=== PATIENT | male | born 1970 | race Caucasian/White ===

== ENCOUNTER 2023-03-04 06:15 | Emergency (ER) | payer BC, SELFPAY ==
[2023-03-04] VITALS (25 sets, daily range): BP systolic 123–135; BP diastolic 86–93; PULSE 65–84; RESP 9–23; TEMP 36.6; O2SAT 94–96; BMI 39.3
--- NOTE | 2023-03-04 06:37 | ED_ITS ---
HPI - Chest Pain General Chief Complaint: Chest Pain Stated Complaint: CHEST PAIN Time Seen by Provider: 03/04/23 06:22 Source: patient and family Mode of arrival: walk-in Limitations: no limitations History of Present Illness HPI narrative: This 52-year-old male presents for evaluation of discomfort in the middle of his chest. The patient states he woke up this morning with the sensation. He does not call it pain but states it is something out of the ordinary for him. He points to the midsternal area. There is no radiation into his arm or back or jaw. It is never had a cardiac workup before. He denies a history of reflux. He denies that this feels like heartburn. He denies any shortness of breath dizziness or diaphoresis. He has no abdominal pain or back pain. He has no lower extremity pain or swelling. He has never had a cardiac workup in the past. No medications were taken prior to arrival. He denies tobacco use. He denies that he ate a heavy meal prior to going to bed last night or is belching excessively. Related Data Home Medications Medication Instructions Recorded Confirmed allopurinol 300 mg tablet mg 03/04/23 Review of Systems ROS Status of ROS 10 or more systems reviewed and unremark able except as noted in history and below [facility] Social History Smoking status: Never smoker Exam Narrative Exam Narrative: Nurses note and vital signs reviewed and patient is not hypoxic. General: The patient appears well and in no apparent distress. Patient is resting comfortably on cart. Skin: Warm, slightly diaphoretic, no skin rash noted Head: Normocephalic, atraumatic Eye: Normal conjunctiva, no drainage, EOMI. PERRL Ears, Nose, Mouth, and Throat: oral mucosa is moist. Cardiovascular: Regular Rate and Rhythm S1S2, no murmurs rubs or gallops appreciated, pulses are brisk and equal bilaterally, no tenderness to palpation on chest wall Respiratory: Patient is in no distress, no accessory muscle use, lungs are clear to auscultation, no wheezing, rales or rhonchi Back: non-tender, no CVA tenderness bilaterally to percussion. GI: Normal bowel sounds, no tenderness to palpation, no masses appreciated. No rebound, guarding, or rigidity noted. Musculoskeletal: The patient has no evidence of calf tenderness, no pitting edema, symmetrical pulses noted bilaterally Neurological: A&O x4, normal speech Psychiatric: Cooperative Constitutional Vital Signs, click to edit/add: Last Vital Signs Temp 98 F 03/04/23 06:20 Pulse 77 03/04/23 06:20 Resp 16 03/04/23 06:20 BP 135/86 03/04/23 06:20 Pulse Ox 95 03/04/23 06:20 O2 Del Method Room Air 03/04/23 06:20 Course Vital Signs Vital signs: Vital Signs Temperature 98 F 03/04/23 06:20 Pulse Rate 77 03/04/23 06:20 Respiratory Rate 16 03/04/23 06:20 Blood Pressure 135/86 03/04/23 06:20 Pulse Oximetry 95 03/04/23 06:20 Oxygen Delivery Method Room Air 03/04/23 06:20 Temperature 98 F 03/04/23 06:20 Pulse Rate 77 03/04/23 06:20 Respiratory Rate 16 03/04/23 06:20 Blood Pressure 135/86 03/04/23 06:20 Pulse Oximetry 95 03/04/23 06:20 Oxygen Delivery Method Room Air 03/04/23 06:20 MDM - Chest Pain MDM Narrative Medical decision making narrative: This otherwise healthy 52-year-old male who is a nonsmoker presents for evalua tion of discomfort in his chest upon awakening this morning. There is no radiation of the discomfort. He denies any dizziness diaphoresis or syncope. He has no abdominal pain or back pain. No medications were taken prior to arrival. Upoon arrival is a sinus rhythm at 79 beats for minute. His vital signs are stable. He was medicated with 324 mg baby aspirin emergency department and IV Pepcid, IV fluids and sublingual nitroglycerin. He will be signed out to the incoming physician at 7 AM. ECG Data Attestation: I personally reviewed and interpreted this ECG as follows: (Sinus rhythm at 79 beats per minute, normal axis, low voltage, no acute ST segment elevation or T-wave inversion) Discharge Plan Discharge Chief Complaint: Chest Pain Clinical Impression: Chest pain Patient Disposition: Still a Patient Prescriptions / Home Meds: No Action allopurinol 300 mg tablet Referrals: Physician,Non-Staff, MD [Primary Care Provider] - 1 week
[2023-03-04 06:49] LABS: Basophils Absolute Auto 0.1 10^3/uL (0.0-0.1); Basophils Percent Auto 0.8 % (0.2-2.0); Eosinophils Absolute Auto 0.4 10^3/uL (0.0-0.7); Eosinophils Percent Auto 6.2 % (0.9-7.0); Hematocrit 45.5 % (42.0-54.0); Hemoglobin 15.4 g/dL (14.0-18.0); Immature Granulocytes Abs Auto 0.02 10^3/uL (0.00-0.03); Immature Granulocytes Pct Auto 0.3 % (0.0-0.5); Lymphocytes Absolute Auto 2.2 10^3/uL (1.2-3.8); Lymphocytes Percent Auto 36.4 % (20.5-60.0); Mean Corpuscular HGB Conc 33.8 g/dL (29.9-35.2); Mean Corpuscular Hemoglobin 30.5 pg (25.9-34.0); Mean Corpuscular Volume 90.1 fL (80.0-94.0); Mean Platelet Volume 9.4 fL (9.5-13.5); Monocytes Absolute Auto 0.5 10^3/uL (0.3-0.8); Monocytes Percent Auto 7.6 % (1.7-12.0); Neutrophils Absolute Auto 2.9 10^3/uL (1.4-6.5); Neutrophils Percent Auto 48.7 % (43.0-75.0); Platelet Count 269 10^3/uL (150-450); Red Blood Count 5.05 10^6/uL (4.70-6.10); Red Cell Distribution Width 12.8 % (11.0-15.0); White Blood Count 5.9 10^3/uL (4.0-11.0)
[2023-03-04 06:55] LABS: Alanine Aminotransferase 30 U/L (16-63); Albumin Globulin Ratio 0.8; Albumin Level 3.4 g/dL (3.4-5.0); Alkaline Phosphatase 80 U/L (46-116); Aspartate Amino Transferase 27 U/L (15-37); BUN Creatinine Ratio 18.2; Bilirubin Total 0.8 mg/dL (0.2-1.0); Calcium 9.4 mg/dL (8.5-10.1); Carbon Dioxide 26.9 mmol/L (21.0-32.0); Chloride 103 mmol/L (98-107); Estimated GFR (African America >60 (>=60); Estimated GFR (Non-African Ame >60 (>=60); Globulin 4.4 g/dL; Glucose 108 mg/dL (74-106); Potassium 3.9 mmol/L (3.5-5.1); Sodium 141 mmol/L (136-145); Total Protein 7.8 g/dL (6.4-8.2); Troponin I High Sensitivity 5.3 pg/mL (4.0-76.1)
[2023-03-04 06:58] LABS: D Dimer 1.28 mg/L FEU (<=0.59)
[2023-03-04] MEDS: ASPIRIN 81 MG TAB.CHEW 324 MG PO (06:59)
--- NOTE | 2023-03-04 06:59 | PC.NURSE ---
Dr Rosales aware D-Dimer is 1.28
[2023-03-04] MEDS: 0.9 % SODIUM CHLORIDE 1,000 ML 125 ML IV (07:01)
--- NOTE | 2023-03-04 07:01 | CT_ITS ---
The [address] [address] Patient Name: SHER KAY MRN: [id number] date: 1970 Sex: M Assigned Patient Location: ER Current Patient Location: ER Accession/Order Number: [id number] Exam Date: 03/04/2023 07:35 Report Date: 03/04/2023 08:14 At the request of: IBRAHIMA MARKER Procedure: CT angio chest CT angio chest, 03/04/2023 7:35 AM EST INDICATION: R/O PE COMPARISON: There is no appropriate prior study for comparison. TECHNIQUE: Axial low-dose images of 1 millimeters are obtained from the thoracic outlet with contrast . 3-D MIP images were obtained. Dose reduction techniques were achieved by using automated exposure control and/or adjustment of mA and/or kV according to patient size and/or use of iterative reconstruction technique. FINDINGS: No endoluminal filling defect within the main pulmonary arteries, lobar and lobular branches is noted. There is no obvious right ventricle strain. There is no suspicious lung lesion. Mild dependent atelectasis is noted. The central tracheobronchial tree is unremarkable. No mediastinal lymph node enlargement by size criteria is noted. No pleural or pericardial effusion is noted. The visualized portions of the solid abdominal organs are unremarkable. Bone: There is no suspicious osteolytic or osteoblastic lesion. CT/CT angio chest IMPRESSION: No pulmonary embolus in the current study. Electronically authenticated by: SLOANE DUQUE Date: 03/04/2023 08:14
[2023-03-04] MEDS: FAMOTIDINE/PF 20 MG/2 ML VIAL IV (07:08)
[2023-03-04 09:15] LABS: Troponin I High Sensitivity 5.1 pg/mL (4.0-76.1)
--- NOTE | 2023-03-04 17:08 | ECG_ITS ---
The [place] Test Date: 2023-03-04 Pat Name: SHER KAY Department: Room: - Gender: Male Color Tester: : 1970 Requested By: [id number] Order Number: [id number] Reading MD: ART VASQUEZ Measurements Intervals [place] Rate: 79 P: 26 ID: [id number] QRS: 10 QRSD: 86 T: 5 QT: 364 QTc: 399 Interpretive Statements 1100 Sinus rhythm 8102 Low QRS voltage in chest leads 9120 atypical ECG No previous ECG available for comparison Electronically Signed On 03-05-2023 6:58:12 EST by ART VASQUEZ
== END 2023-03-04 09:47 | disposition home or self-care (01) ==
PROVIDERS: Emergency Medicine; Emergency Provider Emergency Medicine Emergency Medical Services; Family Provider Family Medicine; PCP Family Medicine
DX: R07.9 Chest pain, unspecified (principal); R79.89 Other specified abnormal findings of blood chemistry; E78.00 Pure hypercholesterolemia, unspecified; M10.9 Gout, unspecified
CPT/HCPCS: 36415; 71275; 80053; 84484; 85025; 85378; 93005; 96374; 99284; Q9967